=== PATIENT | female | born 1990 | race African-American/Black ===

== ENCOUNTER 2017-04-28 20:14 | Emergency (ER) | payer SELFPAY ==
[~2017-04-28] VITALS: Ht 162.6 cm; Wt 150.8 kg
[~2017-04-28 20:14] MED LIST: FLAG250T PO; PROZ20CA11 PO
[2017-04-28 20:18] VITALS: BP 138/79; PULSE 102; RESP 20; TEMP 99.2; O2SAT 99
--- NOTE | 2017-04-28 21:33 | PD ---
HPI Chief Complaint: ENT Complaint Time Seen by Provider: 21:00 Travel History International Travel<30 days: No Contact w/Intl Traveler<30days: No Traveled to known affect area: No History of Present Illness HPI 26-year-old female presents to the emergency room for evaluation of sore throat and body aches for the past day. States it was subtle yesterday but worsened today. Hurts to swallow, eat, and drink. She has been taking ibuprofen all day without relief in symptoms. Patient was around a sick niece but denies any other sick contacts. Denies fever, chills, nausea, or vomiting. Reports slight congestion but denies cough. No chronic medical conditions or daily medications. PFSH Past Medical History Depression: Yes Cancer: No Cardiovascular Problems: No Diabetes: No Endocrine: No Genitourinary: No Hepatitis: No Hiatal Hernia: No Immune Disorder: No Medical other: Yes (OBESE) Musculoskeletal: No Neurologic: No Psychiatric: Yes (PANIC ATTACKS. DEPRESSION) Reproductive: No Respiratory: No Thyroid Disease: Yes (ABNL BLOOD WORK, ULTRASOUND OK) ?: Not Past Surgical History Abdominal Surgery: Yes (BARIATRIC AUG 2016) Body Medical Devices: N/A Cardiac Surgery: No Ear Surgery: No Endocrine Surgery: No Eye Surgery: No Genitourinary Surgery: No Gynecologic Surgery: No Joint Replacement: No Oral Surgery: No Pacemaker: No Thoracic Surgery: No Other Surgery: Yes Social History Alcohol Use: No Tobacco Use: No Substance Use: No Allergies-Medications (Allergen,Severity, Reaction): Coded Allergies: Lactose (Unverified Allergy, Severe, GI DISTRESS, 04/28/17) Reported Meds & Prescriptions Reported Meds & Active Scripts Active Magic Mouthwash Pediatric/Adult Liq (Lidocaine/Diphenhydr/Alum/Mg/Simeth) 60 Ml Susp 5 Ml SWISH-SWAL ACHS Each 5mL contains: Diphenydramine 4.5mg, Viscous Lidocaine 2% 10mg, Maalox Advanced Regular Strength 2.7ml Review of Systems Except as stated in HPI: all other systems reviewed are Neg Physical Exam Narrative GENERAL: Well-nourished, morbidly obese female in no acute distress. Afebrile. Ambulatory.. SKIN: Focused skin assessment warm/dry. HEAD: Normocephalic. EYES: No scleral icterus. No injection or drainage. ENT: Mucosa pink and moist. No erythema or exudates. No uvular edema. No uvular , palatal, or tonsillar deviation. Airway patent. Nasal turbinates appear normal without nasal blood, purulent drainage or septal hematoma. EARS: Bilateral pinnae and external canals appear within normal limits. Bilateral tympanic membranes without erythema, dullness or perforation. NECK: Supple, trachea midline. No JVD or lymphadenopathy. CARDIOVASCULAR: Regular rate and rhythm without murmurs, gallops, or rubs. RESPIRATORY: Breath sounds equal bilaterally. No accessory muscle use. Data Data Last Documented VS Vital Signs Date Time Temp Pulse Resp B/P Pulse Ox O2 Delivery O2 Flow Rate FiO2 04/28/17 20:18 99.2 102 20 138/79 99 Orders Group A Rapid Strep Screen (04/28/17 20:59) [facility] Medical Decision Making Medical Screen Exam Complete: Yes Emergency Medical Condition: Yes Medical Record Reviewed: Yes Differential Diagnosis Strep, pharyngitis, flu, URI Narrative Course 26-year-old female presents to the emergency room for evaluation of sore throat and body aches for the past 2 days. Patient is afebrile and well-appearing in the emergency room. Vital signs stable. Physical exam unremarkable. No erythema or exudates. Airway patent. Rapid strep is positive. Patient discharged with prescription for amoxicillin and Magic mouthwash. Told to follow up with a primary care physician or return for worsening symptoms. She understands and agrees to plan. Diagnosis Primary Impression: Acute streptococcal pharyngitis Referrals: Primary Care Physician Patient Instructions: General Instructions, Pharyngitis (ED) Additional Instructions: Rest and drink plenty of fluids. Magic mouthwash as directed, as needed for pain. Amoxicillin as directed, until gone. Finish medication even if you feel better. Take ibuprofen with food as directed, as needed for pain. Apply ice to the affected area for 20 minutes at a time, as needed for pain and swelling. Follow-up with a primary care physician. Return to the emergency room for worsening symptoms. Med/Other Pt SpecificInfo: Prescription(s) given Scripts Amoxicillin 500 Mg Qgh760 Mg PO BID 10 Days Ref 0 Prov:Landon Jaramillo MD 04/28/17 Qozqcreuobcqbtk-Ndsqjgiqd-Axj-Alum-Simeth Liq (Magic Mouthwash Pediatric/Adult Liq)60 Ml Susp5 Ml SWISH-SWAL ACHS #60 ML Ref 0 Each 5mL contains: Diphenydramine 4.5mg, Viscous Lidocaine 2% 10mg, Maalox Advanced Regular Strength 2.7ml Prov:Landon Jaramillo MD 04/28/17 Disposition: 01 DISCHARGE HOME Condition: Stable Pebbles Mcqueen Apr 28, 2017 21:33
[2017-04-28] MEDS ORDERED: MAGICPED SWISH-SWAL (21:34)
[2017-04-28] MEDS ORDERED: AMOX500T PO (21:50)
[2017-04-28 22:00] VITALS: BP 168/76
== END 2017-04-28 22:05 | disposition home or self-care (01) ==
LOC: PHEFT 20:14
DX: J02.0 Streptococcal pharyngitis (principal); B95.0 Streptococcus, group A, as the cause of diseases classified elsewhere
CPT/HCPCS: 87880; 99283

== ENCOUNTER 2017-07-22 19:50 | Emergency (ER) | payer SELFPAY ==
[~2017-07-22] VITALS: Ht 162.6 cm; Wt 152.1 kg
[~2017-07-22 19:50] MED LIST changes: +AMOX500T PO; -FLAG250T PO; +MAGICPED SWISH-SWAL; -PROZ20CA11 PO
[2017-07-22 19:53] VITALS: BP 137/67; PULSE 99; RESP 16; TEMP 99.7; O2SAT 99
[2017-07-22] MEDS ORDERED: IBUPROFEN 800 MG TAB PO ONE (20:00)
--- NOTE | 2017-07-22 20:18 | PD ---
HPI Chief Complaint: Cold / Flu Symptoms Time Seen by Provider: 20:00 Travel History International Travel<30 days: No Contact w/Intl Traveler<30days: No Traveled to known affect area: No History of Present Illness HPI 27 YO F presents to the ED for evaluation of 5 hour history of sore throat. Rated 7/10, worsened by swallowing. She endorses fevers and chills, called sensation of the left ear. She denies rhinorrhea, cough, shortness of breath. She states that these symptoms are "just like when I had strep throat this year. " She denies nausea, vomiting, risk of . No treatment attempted at home. PFSH Past Medical History Depression: Yes Cancer: No Cardiovascular Problems: No Diabetes: No Endocrine: No Genitourinary: No Hepatitis: No Hiatal Hernia: No Immune Disorder: No Musculoskeletal: No Neurologic: No Psychiatric: Yes (PANIC ATTACKS. DEPRESSION) Reproductive: No Respiratory: No Thyroid Disease: Yes (ABNL BLOOD WORK, ULTRASOUND OK) ?: Not LMP: 06/26/17 Past Surgical History Abdominal Surgery: Yes (BARIATRIC AUG 2016) Body Medical Devices: N/A Cardiac Surgery: No Ear Surgery: No Endocrine Surgery: No Eye Surgery: No Genitourinary Surgery: No Gynecologic Surgery: No Joint Replacement: No Oral Surgery: No Pacemaker: No Thoracic Surgery: No Other Surgery: Yes Social History Alcohol Use: No Tobacco Use: No Substance Use: No Allergies-Medications (Allergen,Severity, Reaction): Coded Allergies: lactose (Unverified Allergy, Severe, GI DISTRESS, 05/26/17) Reported Meds & Prescriptions Reported Meds & Active Scripts Active Magic Mouthwash Adult Liq (Multi-Ingredient Mouthwash/Gargle) 120 Ml Susp 10 Ml SWISH-SWAL ACHS 7 Days Each 5mL contains: Nystatin 200,000units, Diphenhydramine 4.25mg, Viscous Lidocaine 10mg, Deshpande syrup 0.8 mL Ibuprofen 800 Mg Tab 800 Mg PO Q8H PRN Review of Systems Except as stated in HPI: all other systems reviewed are Neg Physical Exam Narrative GENERAL: Well-nourished, well-developed obese black female in no acute distress. SKIN: Warm and dry. HEAD: Normocephalic. Atraumatic. EYES: No scleral icterus. No injection or drainage. PERRLA. EOMI. ENT: Pearly mayer tympanic membranes bilaterally. Nasal mucosa is moist. Oropharynx with moderate erythema. Scant, scattered white exudates bilaterally. No edema. Uvula midline. Airway patent. NECK: Supple, trachea midline. No JVD. Mild bilateral anterior cervical lymphadenopathy. CARDIOVASCULAR: Regular rate and rhythm without murmurs, gallops, or rubs. RESPIRATORY: Breath sounds clear and equal bilaterally. No accessory muscle use. GASTROINTESTINAL: Abdomen soft, non-tender, nondistended. + Bowel sounds MUSCULOSKELETAL: No cyanosis, or edema. BACK: Nontender without obvious deformity. No CVA tenderness. Data Data Last Documented VS Vital Signs Date Time Temp Pulse Resp B/P (MAP) Pulse Ox O2 Delivery O2 Flow Rate FiO2 07/22/17 19:53 99.7 99 16 137/67 (90) 99 Orders Orders Group A Rapid Strep Screen (07/22/17 19:58) Ibuprofen (Motrin) (07/22/17 20:00) Influenzae A/B Antigen (07/22/17 19:58) Strep Culture (Group A) (07/22/17 20:00) Ed Discharge Order (07/22/17 20:36) MDM Medical Decision Making Medical Screen Exam Complete: Yes Emergency Medical Condition: Yes Differential Diagnosis Pharyngitis versus strep pharyngitis versus influenza versus viral syndrome versus other Narrative Course 27 YO F presents to the ED for evaluation of 5 hour history of sore throat. Rated 7/10, worsened by swallowing. She endorses fevers and chills, called sensation of the left ear. She denies rhinorrhea, cough, shortness of breath. She states that these symptoms are "just like when I had strep throat this year. " She denies nausea, vomiting, risk of . Temp 99.7, pulse 99 on presentation. Physical exam reveals an obese white female in no acute distress. There tonsils are 2+ bilaterally. There is moderate erythema and scant, scattered white exudates bilaterally. Uvula midline. Airway patent. Mild bilateral anterior cervical lymphadenopathy. Patient was administered 800 mg ibuprofen. Centor criteria score 3. Rapid strep swab and flu swabs negative. This is pharyngitis. Patient is prescribed 800 mg ibuprofen 3 times a day when necessary pain and inflammation and Magic mouthwash. She is referred to his failure clinic for follow-up. We discussed reasons to return to the ED. She is stable and discharged home. Diagnosis Primary Impression: Viral pharyngitis Referrals: [facility] Patient Instructions: General Instructions, Pharyngitis (ED) Additional Instructions: Rest, hydrate. Push fluids such as sports drinks, Pedialyte, popsicles, clear broth. 800 mg ibuprofen every 8 hours as needed for pain and fever. Replace toothbrush at the end of this illness. Follow-up with the primary care provider this week. Return to the ED for any urgent or emergent medical condition. Med/Other Pt SpecificInfo: Prescription(s) given Scripts Esftwzgp-Uryspnlozmdnxda-Wapzwnpup Liq (Magic Mouthwash Adult Liq) 120 Ml Susp 10 ML SWISH-SWAL ACHS for Sore Throat for 7 Days, #120 ML 0 Refills Each 5mL contains: Nystatin 200,000units, Diphenhydramine 4.25mg, Viscous Lidocaine 10mg, Deshpande syrup 0.8 mL Prov: Tila Han MD 07/22/17 Ibuprofen (Ibuprofen) 800 Mg Tab 800 MG PO Q8H Y for Pain/Inflammation, #14 TAB 0 Refills Prov: Tila Han MD 07/22/17 Disposition: 01 DISCHARGE HOME Condition: Stable Katheryn Zeng Jul 22, 2017 20:18
[2017-07-22] MEDS ORDERED: IBUP800T23 PO (20:19)
[2017-07-22] MEDS ORDERED: MAGICADU2 SWISH-SWAL (20:36)
== END 2017-07-22 20:49 | disposition home or self-care (01) ==
LOC: PHEFT 19:50
DX: J02.8 Acute pharyngitis due to other specified organisms (principal); B97.89 Other viral agents as the cause of diseases classified elsewhere; R50.9 Fever, unspecified; R59.0 Localized enlarged lymph nodes; E07.9 Disorder of thyroid, unspecified; Z86.59 Personal history of other mental and behavioral disorders
CPT/HCPCS: 87081; 87804; 87880; 99283

== ENCOUNTER 2017-07-26 11:55 | Emergency (ER) | payer SELFPAY ==
[~2017-07-26] VITALS: Ht 165.1 cm; Wt 150.0 kg
[~2017-07-26 11:55] MED LIST changes: -AMOX500T PO; +IBUP800T23 PO; +MAGICADU2 SWISH-SWAL; -MAGICPED SWISH-SWAL
[2017-07-26 12:01] VITALS: BP 143/77; PULSE 74; RESP 16; TEMP 98.7; O2SAT 99
[2017-07-26] MEDS ORDERED: VENL75TA PO (12:07)
[2017-07-26] MEDS ORDERED: DICL75TA PO (12:19)
[2017-07-26] MEDS ORDERED: AMOX875T PO (12:19)
--- NOTE | 2017-07-26 12:25 | PD ---
HPI Chief Complaint: Cold / Flu Symptoms Time Seen by Provider: 12:10 Travel History International Travel<30 days: No Contact w/Intl Traveler<30days: No Traveled to known affect area: No History of Present Illness HPI 27-year-old female that presents to the ED for evaluation of cold-like symptoms. Patient states that she's been having ear pain, body aches and congestion. Some cough. She was seen here about a week ago for sore throat and was diagnosed with viral pharyngitis. She's been taking ibuprofen with some relief. She denies any shortness of breath. No chest pain. She does have some cough. Pain is 7 out of 10 on the right ear. Denies any recent swimming. No other injuries. No sick contacts. Allergy to lactose. Has not seen anybody for this. No recent travel. PFSH Past Medical History Depression: Yes Cancer: No Cardiovascular Problems: No Diabetes: No Diminished Hearing: No Endocrine: No Genitourinary: No Hepatitis: No Hiatal Hernia: No Immune Disorder: No Musculoskeletal: No Neurologic: No Psychiatric: Yes (PANIC ATTACKS. DEPRESSION) Reproductive: No Respiratory: No Thyroid Disease: Yes ?: Not LMP: 07/23/17 Past Surgical History Abdominal Surgery: Yes (BARIATRIC AUG 2016) Body Medical Devices: N/A Cardiac Surgery: No Ear Surgery: No Endocrine Surgery: No Eye Surgery: No Genitourinary Surgery: No Gynecologic Surgery: No Joint Replacement: No Oral Surgery: No Pacemaker: No Thoracic Surgery: No Other Surgery: Yes Social History Alcohol Use: Yes (occ) Tobacco Use: No Substance Use: No Allergies-Medications (Allergen,Severity, Reaction): Coded Allergies: lactose (Unverified Allergy, Severe, GI DISTRESS, 07/26/17) Reported Meds & Prescriptions Reported Meds & Active Scripts Active Diclofenac Sodium DR (Diclofenac Sodium) 75 Mg Tabdr 75 Mg PO BID PRN Amoxicillin 875 Mg Tab 875 Mg PO BID 10 Days Reported Effexor (Venlafaxine HCl) 75 Mg Tab 75 Mg PO DAILY Review of Systems Except as stated in HPI: all other systems reviewed are Neg Physical Exam Narrative GENERAL: Well-nourished, well-developed patient in no apparent distress. SKIN: Warm and dry. HEAD: Atraumatic. Normocephalic. EYES: Pupils equal and round reactive to light and accommodation. No scleral icterus. No injection or drainage. ENT: No nasal bleeding or discharge. Mucous membranes pink and moist. TMs are red and bulging on the right ear. Left TM appears to be intact.. No mastoid tenderness. Ear canals are intact bilaterally. No lymphadenopathy. Nostril mucosa is red and moist with clear mucus noted. No sinus tenderness to palpation noted. Tonsils are not enlarged or swollen. No ulvua Deviation. Tongue is midline. NECK: Trachea midline. No JVD. No meningeal signs noted CARDIOVASCULAR: Regular rate and rhythm. RESPIRATORY: No accessory muscle use. Clear to auscultation. Breath sounds equal bilaterally. GASTROINTESTINAL: Abdomen soft, non-tender, nondistended. Hepatic and splenic margins not palpable. MUSCULOSKELETAL: Extremities without clubbing, cyanosis, or edema. No obvious deformities. NEUROLOGICAL: Awake and alert. No obvious cranial nerve deficits. Motor grossly within normal limits. Five out of 5 muscle strength in the arms and legs. Normal speech. PSYCHIATRIC: Appropriate mood and affect; insight and judgment normal. Data Data Last Documented VS Vital Signs Date Time Temp Pulse Resp B/P (MAP) Pulse Ox O2 Delivery O2 Flow Rate FiO2 07/26/17 12:01 98.7 74 16 143/77 (99) 99 MDM Medical Decision Making Medical Screen Exam Complete: Yes Emergency Medical Condition: Yes Medical Record Reviewed: Yes Differential Diagnosis Otitis media versus otitis externa versus sinusitis versus mastoiditis Narrative Course 27-year-old female that presents to the ED for evaluation of cold-like symptoms. Patient was properly examined and was found to have signs and symptoms consistent with otitis media to the right ear. This time I think is reasonable to treat the patient with amoxicillin and diclofenac sodium. She was told that symptoms will likely last for at least a few days. Told to follow up closely with PCP. Motrin for pain. OTC meds as needed. See ED worsening symptoms. Diagnosis Primary Impression: Otitis media Qualified Codes: H66.001 - Acute suppurative otitis media without spontaneous rupture of ear drum, right ear Patient Instructions: General Instructions Departure Forms: Tests/Procedures, Work Release Enter return to work date: Jul 27, 2017 Additional Instructions: Motrin and Tylenol for pain and fever. You can use [id number] antihistamine as well as well as Mucinex as needed for runny nose and congestion. Cough drops for cough as needed. Drink plenty of fluids. Follow-up with PCP. See ED for worsening symptoms. Med/Other Pt SpecificInfo: Prescription(s) given Scripts Diclofenac Sodium DR (Diclofenac Sodium DR) 75 Mg Tabdr 75 MG PO BID Y for PAIN SCALE 1 TO 10, #20 TAB 0 Refills Prov: Allyson Miranda MD 07/26/17 Amoxicillin (Amoxicillin) 875 Mg Tab 875 MG PO BID for Infection for 10 Days, #20 TAB 0 Refills Prov: Allyson Miranda MD 07/26/17 Disposition: 01 DISCHARGE HOME Condition: Stable Luke Pacheco Jul 26, 2017 12:25
== END 2017-07-26 12:54 | disposition home or self-care (01) ==
LOC: PHEFT 11:55
DX: H66.001 Acute suppurative otitis media without spontaneous rupture of ear drum, right ear (principal)
CPT/HCPCS: 99284